=== PATIENT | female | born 1990 | race African-American/Black ===

== ENCOUNTER 2019-02-15 08:42 | Emergency (ER) | payer MEDICAID, OTHER ==
[~2019-02-15] VITALS: Ht 170.2 cm; Wt 97.0 kg
[~2019-02-15 08:42] MED LIST: BLOOD PRESSURE MEDICATION; PRENATAL VITS
[2019-02-15 08:58] VITALS: BP 129/81
== END 2019-02-15 10:18 | disposition home or self-care (01) ==
LOC: ER 08:42
DX: J02.9 Acute pharyngitis, unspecified (principal); J45.909 Unspecified asthma, uncomplicated; F12.10 Cannabis abuse, uncomplicated; Z88.0 Allergy status to penicillin
CPT/HCPCS: 99283

== ENCOUNTER 2020-01-05 15:53 | Emergency (ER) | payer MEDICAID ==
[~2020-01-05] VITALS: Ht 170.2 cm; Wt 100.0 kg
[2020-01-05] MEDS ORDERED: VISCOUS LIDOCAINE 2% 15 ML UDC PO STA (16:37)
[2020-01-05] MEDS ORDERED: MAGNESIUM/ALUMINUM HYDROXIDE/SIMETHICONE 30ML UDC PO STA (16:37)
[2020-01-05] MEDS ORDERED: FAMOTIDINE 20MG/2ML VIAL IV STA (16:37)
[2020-01-05 17:11] LABS: BASOPHILS % 1.2 % (0.0-2.0); EOSINOPHILS % 0.7 % (0.0-5.0); HEMATOCRIT. 40.3 % (36.0-48.0); HEMOGLOBIN. 13.3 g/dL (12.0-16.0); LYMPHOCYTES % 33.7 % (20.0-50.0); MEAN CORPUSCULAR HEMOGLOBIN 29.8 pg (28.0-32.0); MEAN CORPUSCULAR VOLUME 90.3 fL (81.0-99.0); MEAN PLATELET VOLUME 9.1 fl (7.4-10.4); MONOCYTES % 5.7 % (2.0-8.0); NEUTROPHILS % 58.7 % (40.0-76.0); PLATELET 305 x1000/uL (130-400); RED BLOOD CELL COUNT 4.46 mill/uL (4.2-5.4); RED CELL DISTRIBUTION WIDTH 14.4 % (11.6-14.6)
[2020-01-05 17:16] LABS: CHLORIDE 107 mEq/L (98-107)
[2020-01-05 17:17] LABS: CLARITY URINE TURBID (CLEAR); COLOR URINE YELLOW (YELLOW); KETONES URINE 2+ (NEGATIVE); LEUKOCYTE ESTERASE URINE 1+ (NEGATIVE); NITRITE URINE NEGATIVE (NEGATIVE); OCCULT BLOOD URINE TRACE (NEGATIVE); PROTEIN URINE TRACE (NEGATIVE); SPECIFIC GRAVITY URINE 1.029 (1.005-1.030)
[2020-01-05 18:40] VITALS: BP 124/82
== END 2020-01-05 18:39 | disposition home or self-care (01) ==
LOC: ER 15:53
DX: R10.13 Epigastric pain (principal); J45.909 Unspecified asthma, uncomplicated; F12.10 Cannabis abuse, uncomplicated; Z88.0 Allergy status to penicillin
CPT/HCPCS: 36415; 76705; 80053; 81003; 81025; 83690; 84484; 85025; 85610; 93005; 96374; 99284; J3490

== ENCOUNTER 2020-09-15 18:36 | Emergency (ER) | payer MEDICAID ==
[~2020-09-15] VITALS: Ht 170.2 cm; Wt 113.0 kg
[2020-09-15] MEDS ORDERED: KETOROLAC 30MG/ML VIAL IM ONE (19:15)
[2020-09-15 19:48] VITALS: BP 124/75
== END 2020-09-15 20:32 | disposition home or self-care (01) ==
LOC: ER 18:36
DX: G44.209 Tension-type headache, unspecified, not intractable (principal); J45.909 Unspecified asthma, uncomplicated; F12.10 Cannabis abuse, uncomplicated; Z88.0 Allergy status to penicillin
CPT/HCPCS: 96372; 99283; J1885